=== PATIENT | female | born 1965 | race Caucasian/White ===

== ENCOUNTER → 2018-09-14 | Emergency (ER) | payer OTHER ==
[~2018-09-14] VITALS: Ht 160 cm; Wt 78.9 kg
[~2018-09-14] MED LIST: ASA81 MG PO; FORTAMET1000 MG PO; HUMALOG100 UNIT/1; LANTUS SOL100 UNIT/1; LIPITOR20 MG PO; [UNRECOGNIZED DRUG - OTHER] PO
== END | disposition home or self-care (01) ==
LOC: ER 14:23
DX: K52.89 Other specified noninfective gastroenteritis and colitis (principal)

== ENCOUNTER 2018-11-22 10:31 | Emergency (ER) | payer OTHER ==
[~2018-11-22] VITALS: Ht 160 cm; Wt 81.2 kg
== END 2018-11-22 18:38 | disposition home or self-care (01) ==
LOC: ER 10:31
DX: M94.0 Chondrocostal junction syndrome [Tietze] (principal)